=== PATIENT | female | born 1950 | race Caucasian/White ===

== ENCOUNTER 2020-03-31 10:21 | Emergency (ER) | payer MEDICARE, BC ==
--- NOTE | 2020-03-31 10:39 | EDM.PDOC ---
ED HPI GENERAL MEDICAL PROBLEM - General Chief Complaint: General Stated Complaint: COVID +/ANTIBODIES Time Seen by Provider: 03/31/20 10:39 Source of Information: Reports: Patient History Limitations: Reports: No Limitations - History of Present Illness INITIAL COMMENTS - FREE TEXT/NARRATIVE: 69-year-old female presents to the ED with recent diagnosis of COVID-19 illness by rapid testing in the clinic yesterday. Has been symptomatic since last March 25. She appears to have a fairly mild form of the illness with nasal congestion with no loss of taste or smell. Minimal sore throat minimal harsh cough that is minimally productive of white sputum. Low-grade fever. No chills. No significant myalgia and no headache. Mild diarrhea no nausea vomiting can still eat quite well. Fatigue. Risk factors without her mild obesity, hypertension. He was sent from the [facility] for potential monoclonal antibody infusion. She is never been a smoker. Onset: Sudden Onset Date: 03/25/20 Duration: Day(s):, Constant Location: Reports: Head (Sinus congestion), Chest ( with retained sense of taste and smell. Mild paroxysmal intermittent cough minimally productive.), Other (Mild diarrhea. Low-grade fever) Quality: Reports: Other Severity: Mild Improves with: Reports: None Worsens with: Reports: None Context: Reports: Sick Contact. Denies: Activity, Exercise, Lifting, Trauma, Other (But also has COVID-19 illness.) Associated Symptoms: Reports: Cough, cough w sputum, Fever/Chills, Malaise, Other. Denies: No Other Symptoms, Confusion, Chest Pain (Sputum), Diaphoresis, Headaches (Grade fever.), Loss of Appetite, Nausea/Vomiting, Rash, Seizure, Shortness of Breath, Syncope, Weakness Treatments SOFTWARE SPECIALIST: Reports: Other (see below) - Related Data Allergies Allergy/AdvReac Type Severity Reaction Status Date / Time No Known Allergies Allergy Verified 03/31/20 10:43 Home Meds: Home Meds Losartan [Cozaar] 50 mg PO DAILY 03/31/20 [History] Past Medical History Cardiovascular History: Reports: Hypertension Respiratory History: Reports: Other (See Below) (Mild cough.) Musculoskeletal History: Reports: Osteoarthritis - Past Surgical History HEENT Surgical History: Reports: Cataract Surgery (Lateral cataract extractions and intraocular lens implants) Female Surgical History: Reports: Hysterectomy, Salpingo-Oophorectomy (Bilateral bilateral salpingo-oophorectomy with a hysterectomy.) Musculoskeletal Surgical History: Reports: Other (See Below) (Lateral total knee replacements.) Social & Family History - Living Situation & Occupation Living situation: Reports: Occupation: Retired ED ROS GENERAL - Review of Systems Review Of Systems: See Below Constitutional: Reports: Fever, Malaise, Weakness, Fatigue. Denies: Chills, Decreased Appetite, Weight Loss HEENT: Reports: Glasses Respiratory: Reports: Shortness of Breath, Cough. Denies: Wheezing, Pleuritic Chest Pain Cardiovascular: Reports: Blood Pressure Problem. Denies: Chest Pain (Normal nonproductive cough with occasional white sputum production), Claudication, Dyspnea on Exertion, Edema, Lightheadedness, Orthopnea, Palpitations Endocrine: Reports: No Symptoms GI/Abdominal: Reports: No Symptoms : Reports: Incontinence Musculoskeletal: Reports: Neck Pain, Shoulder Pain, Back Pain (Occasional stress incontinence), Joint Pain Skin: Reports: No Symptoms (Hips at times) Neurological: Reports: No Symptoms Psychiatric: Reports: No Symptoms Hematologic/Lymphatic: Reports: No Symptoms Immunologic: Reports: No Symptoms ED EXAM, GENERAL - Physical Exam Exam: See Below Exam Limited By: No Limitations General Appearance: Alert, WD/WN, No Apparent Distress, Other (Temperature is 36.7 at this time heart rate is 70 respiratory is 18 with O2 sats of 99% room air BP 177/88) Eye Exam: Bilateral Eye: Normal Inspection (No scleral icterus), PERRL ( no blepharal pallor.) Throat/Mouth: Normal Inspection (Tongue is mildly dry), Normal Lips, Normal Oropharynx, Other Head: Atraumatic, Normocephalic Neck: Normal Inspection, Supple, Non-Tender, Full Range of Motion. No: Carotid Bruit, Lymphadenopathy (L), Lymphadenopathy (R) Respiratory/Chest: No Respiratory Distress, Lungs Clear, Normal Breath Sounds, No Accessory Muscle Use Cardiovascular: Normal Peripheral Pulses, Regular Rate, Rhythm, No Edema, No Gallop, No Murmur, No Rub Peripheral Pulses: 2+: Posterior Tibial (L), Posterior Tibial (R), Dorsalis Pedis (L), Dorsalis Pedis (R), 3+: Carotid (L), Carotid (R) GI/Abdominal: Normal Bowel Sounds, Soft, Non-Tender, No Organomegaly, No Mass, Pelvis Stable, Other (Mildly obese.) Back Exam: Normal Inspection, Full Range of Motion. No: CVA Tenderness (L), CVA Tenderness (R) Extremities: Normal Inspection, Normal Range of Motion, Non-Tender, No Pedal Edema, Normal Capillary Refill Neurological: Alert, Oriented, CN II-XII Intact, Normal Cognition, Normal Gait Psychiatric: Normal Affect, Normal Mood Skin Exam: Warm, Dry, Intact, Normal Color, No Rash Course - Vital Signs Last Recorded V/S: Last Vital Signs Temp 36.7 C 03/31/20 10:39 Pulse 62 03/31/20 12:20 Resp 18 03/31/20 10:39 BP 135/74 03/31/20 12:20 Pulse Ox 98 03/31/20 12:20 - Orders/Labs/Meds Orders: Active Orders 24 hr Category Date Time Status Vital Signs [RC] Q15M Care 03/31/20 10:56 Active EPINEPHrine [Adrenalin] Med 03/31/20 10:56 Active 0.3 mg IM ONETIME PRN Famotidine [Pepcid] Med 03/31/20 10:56 Active 20 mg IVPUSH ONETIME PRN Sodium Chloride 0.9% [Saline Flush] Med 03/31/20 11:00 Active 30 ml FLUSH ASDIRECTED diphenhydrAMINE [Benadryl] Med 03/31/20 10:56 Active 50 mg IVPUSH ONETIME PRN methylPREDNISolone Sod Succ [Solu-MEDROL] Med 03/31/20 10:56 Active 125 mg IVPUSH ONETIME PRN Medication Orders Diphenhydramine HCl (Benadryl) 50 mg IVPUSH ONETIME PRN PRN Reason: hypersensitivity reaction Epinephrine HCl (Adrenalin) 0.3 mg IM ONETIME PRN PRN Reason: hypersensitivity reaction Famotidine (Pepcid) 20 mg IVPUSH ONETIME PRN PRN Reason: hypersensitivity reaction Methylprednisolone Sodium Succinate (Solu-Medrol) 125 mg IVPUSH ONETIME PRN PRN Reason: hypersensitivity reaction Sodium Chloride (Saline Flush) 30 ml FLUSH ASDIRECTED SAMANTHA Labs: Laboratory Tests 03/31/20 03/31/20 03/31/20 Range/Units 11:17 11:17 11:17 WBC 6.01 (3.98-10.04) K/mm3 RBC 5.13 (3.98-5.22) M/mm3 Hgb 15.1 (11.2-15.7) gm/dl Hct 46.8 H (34.1-44.9) % MCV 91.2 (79.4-94.8) fl MCH 29.4 (25.6-32.2) pg MCHC 32.3 (32.2-35.5) g/dl RDW Std Deviation 40.6 (36.4-46.3) fL Plt Count 204 (182-369) K/mm3 MPV 10.2 (9.4-12.3) fl Neut % (Auto) 67.3 (34.0-71.1) % Lymph % (Auto) 23.5 (19.3-51.7) % [place] % (Auto) 7.7 (4.7-12.5) % Eos % (Auto) 1.0 (0.7-5.8) Baso % (Auto) 0.3 (0.1-1.2) % Neut # (Auto) 4.05 (1.56-6.13) K/mm3 Lymph # (Auto) 1.41 (1.18-3.74) K/mm3 [place] # (Auto) 0.46 H (0.24-0.36) K/mm3 Eos # (Auto) 0.06 (0.04-0.36) K/mm3 Baso # (Auto) 0.02 (0.01-0.08) K/mm3 Manual Slide Review Normal smear D-Dimer, Quantitative 1.56 H (0.19-0.50) mg/L Sodium 142 (136-145) mEq/L Potassium 4.3 (3.5-5.1) mEq/L Chloride 105 (98-107) mEq/L Carbon Dioxide 29 (21-32) mEq/L Anion Gap 12.3 (5-15) BUN 16 (7-18) mg/dL Creatinine 0.8 (0.55-1.02) mg/dL Est Cr Clr Drug Dosing 52.49 mL/min Estimated GFR (MDRD) > 60 (>60) mL/min BUN/Creatinine Ratio 20.0 H (14-18) Glucose 92 (80-115) mg/dL Calcium 8.9 (8.5-10.1) mg/dL Magnesium 2.1 (1.8-2.4) mg/dl Ferritin (8-252) ng/ml Total Bilirubin 0.9 (0.2-1.0) mg/dL AST 23 (15-37) U/L ALT 23 (14-59) U/L Alkaline Phosphatase 83 (46-116) U/L Lactate Dehydrogenase 214 (81-234) U/L C-Reactive Protein 1.0 (<1.0) mg/dL Total Protein 7.3 (6.4-8.2) g/dl Albumin 3.3 L (3.4-5.0) g/dl Globulin 4.0 gm/dL Albumin/Globulin Ratio 0.8 L (1-2) 03/31/20 Range/Units 11:17 WBC (3.98-10.04) K/mm3 RBC (3.98-5.22) M/mm3 Hgb (11.2-15.7) gm/dl Hct (34.1-44.9) % MCV (79.4-94.8) fl MCH (25.6-32.2) pg MCHC (32.2-35.5) g/dl RDW Std Deviation (36.4-46.3) fL Plt Count (182-369) K/mm3 MPV (9.4-12.3) fl Neut % (Auto) (34.0-71.1) % Lymph % (Auto) (19.3-51.7) % [place] % (Auto) (4.7-12.5) % Eos % (Auto) (0.7-5.8) Baso % (Auto) (0.1-1.2) % Neut # (Auto) (1.56-6.13) K/mm3 Lymph # (Auto) (1.18-3.74) K/mm3 [place] # (Auto) (0.24-0.36) K/mm3 Eos # (Auto) (0.04-0.36) K/mm3 Baso # (Auto) (0.01-0.08) K/mm3 Manual Slide Review D-Dimer, Quantitative (0.19-0.50) mg/L Sodium (136-145) mEq/L Potassium (3.5-5.1) mEq/L Chloride (98-107) mEq/L Carbon Dioxide (21-32) mEq/L Anion Gap (5-15) BUN (7-18) mg/dL Creatinine (0.55-1.02) mg/dL Est Cr Clr Drug Dosing mL/min Estimated GFR (MDRD) (>60) mL/min BUN/Creatinine Ratio (14-18) Glucose (80-115) mg/dL Calcium (8.5-10.1) mg/dL Magnesium (1.8-2.4) mg/dl Ferritin 316 H (8-252) ng/ml Total Bilirubin (0.2-1.0) mg/dL AST (15-37) U/L ALT (14-59) U/L Alkaline Phosphatase (46-116) U/L Lactate Dehydrogenase (81-234) U/L C-Reactive Protein (<1.0) mg/dL Total Protein (6.4-8.2) g/dl Albumin (3.4-5.0) g/dl Globulin gm/dL Albumin/Globulin Ratio (1-2) Meds: Medications Generic Name Dose Route Start Last Admin Trade Name Freq PRN Reason Stop Dose Admin Diphenhydramine HCl 50 mg 03/31/20 10:56 Benadryl IVPUSH ONETIME PRN hypersensitivity reaction Epinephrine HCl 0.3 mg 03/31/20 10:56 Adrenalin IM ONETIME PRN hypersensitivity reaction Famotidine 20 mg 03/31/20 10:56 Pepcid IVPUSH ONETIME PRN hypersensitivity reaction Methylprednisolone Sodium Succinate 125 mg 03/31/20 10:56 Solu-Medrol IVPUSH ONETIME PRN hypersensitivity reaction Sodium Chloride 30 ml 03/31/20 11:00 Saline Flush FLUSH ASDIRECTED SAMANTHA Discontinued Medications Generic Name Dose Route Start Last Admin Trade Name Freq PRN Reason Stop Dose Admin Non-Formulary Medication 1,200 250 mls @ 250 mls/hr 03/31/20 10:56 03/31/20 11:40 mg/ Non-Formulary Medication IV 03/31/20 11:55 250 mls/hr 1,200 mg/ Sodium Chloride ONETIME ONE Administration - Radiology Interpretation Free Text/Narrative:: 69-year-old female presents to the ED at the request of her primary care physician. She was diabetic diagnosed with COVID-19 illness by rapid testing done yesterday. She has been symptomatic since March 25 making her day 6 of illness. She appears to have a relatively minor form of the illness at this time with primary nasal congestion minimal productive cough with white sputum no significant body aches or generalized myalgia. Low-grade fever no chills appetite is retained. Minimal diarrhea. She wishes to pursue treatment with monoclonal antibody therapy. She will therefore be given Regeneron intravenously. I spoke with Xin Villarreal to provide information about Regeneron treatment for herself. I have offered her the patient and caregiver EUA Regeneron fax sheet to read and review. I stated the drug has been approved by an emergency use authorization process and has not been fully vetted by the FDA or reapproved at this time the patient meets the EUA requirements. I discussed there are other potential treatment options that are currently not FDA approved to treat COVID-19. Offered opportunity ask questions and all questions were answered. The patient Mrs. Xin Villarreal voiced understanding and agreed to proceed with treatment for Regeneron for herself. - Re-Assessments/Exams Free Text/Narrative Re-Assessment/Exam: 03/31/20 12:14 chest x-ray done portably reveals normal cardiac silhouette. There is some mild hazy infiltrate around the right perihilar area and right medial lobe of the heart compatible with early viral pneumonitis. 03/31/20 12:16 Hematology reveals a normal white count at 6.01. Auto differential shows 67.3% neutrophils. Hemoglobin is 15.1 with hematocrit of 46.8 platelet count 204,000. Sodium 142 with a potassium of 4.3 chloride 105 with a bicarb of 29 anion gap is 12.3 BUN is 12 with a creatinine of 0.8 and GFR greater than 60. Glucose is 92 calcium is 8.9 magnesium is 2.1 serum ferritin is elevated at 316. Total bilirubin is 0.9 AST is 23, ALT is 23. Alkaline phosphatase is 83. LDH is 214 C-reactive protein is 1.0 total protein 7.3 with an albumin fraction of 3.3. Patient at present is care home through her Regeneron infusion and is tolerating it well with no side effects at this time 03/31/20 13:19 patient completed her IV Regeneron medication over 25 minutes ago and tolerated very well without any side effects at all. Is advised to return if she develops increased shortness of breath or severe paroxysmal cough or low O2 sats lower than 90% for a prolonged period of time. Departure - Departure Time of Disposition: 13:20 Disposition: Home, Self-Care 01 Condition: Fair Clinical Impression: COVID-19 determined by clinical diagnostic criteria - Discharge Information *PRESCRIPTION DRUG MONITORING PROGRAM REVIEWED*: Not Applicable *COPY OF PRESCRIPTION DRUG MONITORING REPORT IN PATIENT JUNE: Not Applicable Instructions: COVID-19 Referrals: Charo Perez NP [Primary Care Provider] - Forms: ED Department Discharge Additional Instructions: Evaluation in the emergency room today in regards to recent diagnosis of COVID- 19 illness. Symptoms started about last March 25. Currently on day 6 of illness. Markers for inflammation were mildly elevated in your bloodstream. Chest x-ray revealed a very early infiltrate in the right lower lobe suggestive of a viral pneumonia. History suggest that you are suffering a relatively mild form of COVID-19 illness at this time. You were therefore a candidate for monoclonal antibody treatment and did receive Regeneron which has to monoclonal antibodies in it which gives you immediate immunity to COVID-19 illness and tries to slow down the inflammation and viral replication. The goal of this is to keep the illness mild and prevent you from having to come into the hospital. You would need to return to the hospital if you start to develop more shortness of breath on exertion with your O2 sats are staying persistently lower than 90% you are still considered contagious for a minimum of 10 days after onset of illness and probably should self quarantine for 14 days from onset of illness time. Follow-up with personal care physician if any further problems occur.. Sepsis Event Note (ED) - Focused Exam Vital Signs: Vital Signs Temp Pulse Resp BP Pulse Ox 03/31/20 12:20 62 135/74 98 03/31/20 12:00 62 149/88 H 99 03/31/20 11:45 65 144/83 H 99 03/31/20 10:39 36.7 C 70 18 177/88 H 100 - My Orders Last 24 Hours: My Active Orders 03/31/20 10:56 Vital Signs [RC] Q15M EPINEPHrine [Adrenalin] 0.3 mg IM ONETIME PRN Famotidine [Pepcid] 20 mg IVPUSH ONETIME PRN diphenhydrAMINE [Benadryl] 50 mg IVPUSH ONETIME PRN methylPREDNISolone Sod Succ [Solu-MEDROL] 125 mg IVPUSH ONETIME PRN 03/31/20 11:00 Sodium Chloride 0.9% [Saline Flush] 30 ml FLUSH ASDIRECTED - Assessment/Plan Last 24 Hours: My Active Orders 03/31/20 10:56 Vital Signs [RC] Q15M EPINEPHrine [Adrenalin] 0.3 mg IM ONETIME PRN Famotidine [Pepcid] 20 mg IVPUSH ONETIME PRN diphenhydrAMINE [Benadryl] 50 mg IVPUSH ONETIME PRN methylPREDNISolone Sod Succ [Solu-MEDROL] 125 mg IVPUSH ONETIME PRN 03/31/20 11:00 Sodium Chloride 0.9% [Saline Flush] 30 ml FLUSH ASDIRECTED
[2020-03-31] MEDS ORDERED: methylPREDNISolone Sodium Succinate 125 MG/2 ML SDV IVPUSH PRN (10:56)
[2020-03-31] MEDS ORDERED: EPINEPHrine 1 MG/ML SDV IM PRN (10:56)
[2020-03-31] MEDS ORDERED: Casirivimab 1,200 MG, Imdevimab 1,200 MG in Sodium Chloride 0.9% 230 ML IV ONE (10:56)
[2020-03-31] MEDS ORDERED: diphenhydrAMINE 50 MG/ML SDV IVPUSH PRN (10:56)
[2020-03-31] MEDS ORDERED: Famotidine 20 MG/2 ML SDV IVPUSH PRN (10:56)
[2020-03-31] MEDS ORDERED: Sodium Chloride 0.9% 10 ML Syringe FLUSH SCH (11:00)
--- NOTE | 2020-03-31 12:08 | CR ---
Chest: Portable view of the chest was obtained. Comparison: Prior chest x-ray of 08/21/19. Heart size is normal. Tortuous thoracic aorta is seen. Slight parenchymal density is seen along the lateral mid chest. Right lung is clear. Bony structures are grossly intact. Impression: 1. Slight parenchymal density on the lateral left chest most likely due to small COVID pneumonia. 2. No additional abnormality is definitely appreciated. Diagnostic code #3
== END 2020-03-31 13:45 | disposition home or self-care (01) ==
LOC: JD.ED 10:21
DX: U07.1 COVID-19 (principal); I10 Essential (primary) hypertension; E66.9 Obesity, unspecified; Z68.36 Body mass index [BMI] 36.0-36.9, adult; Z79.899 Other long term (current) drug therapy
CPT/HCPCS: 36415; 71045; 80053; 82728; 83615; 83735; 85025; 85379; 86140; 99284; J7050; M0243; Q0243